=== PATIENT | male | born 1980 | race Caucasian/White ===

== ENCOUNTER 2018-04-07 15:15 | Emergency (ER) | payer SELFPAY ==
[~2018-04-07] VITALS: Ht 170.2 cm; Wt 82.0 kg
[2018-04-07 15:29] VITALS: BP 141/90
== END 2018-04-07 20:11 | disposition home or self-care (01) ==
LOC: ER 16:30
DX: L02.416 Cutaneous abscess of left lower limb (principal)
CPT/HCPCS: 99283; Z7610

== ENCOUNTER 2018-05-27 07:26 | Emergency (ER) | payer SELFPAY ==
[~2018-05-27] VITALS: Ht 167.6 cm; Wt 87.0 kg
[2018-05-27] MEDS ORDERED: KETOROLAC 30MG/ML VIAL IM ONE (10:30)
[2018-05-27 12:28] LABS: CLARITY URINE CLEAR (CLEAR); COLOR URINE YELLOW (YELLOW); KETONES URINE NEGATIVE (NEGATIVE); LEUKOCYTE ESTERASE URINE NEGATIVE (NEGATIVE); NITRITE URINE NEGATIVE (NEGATIVE); OCCULT BLOOD URINE NEGATIVE (NEGATIVE); PROTEIN URINE TRACE (NEGATIVE); UROBILINOGEN URINE 0.2 E.U./dL (0.2-1.0)
[2018-05-27 13:01] VITALS: BP 117/72
== END 2018-05-27 13:04 | disposition home or self-care (01) ==
LOC: ER 09:15
DX: M54.5 Low back pain (principal)
CPT/HCPCS: 81003; 96372; 99283; J1885

== ENCOUNTER 2018-08-04 07:49 | Emergency (ER) | payer SELFPAY ==
[~2018-08-04] VITALS: Ht 172.7 cm; Wt 88.0 kg
[2018-08-04 08:45] VITALS: BP 156/81
[2018-08-04] MEDS ORDERED: KETOROLAC 60MG/2ML VIAL IM ONE (08:45)
[2018-08-04] MEDS ORDERED: CYCLOBENZAPRINE 10MG TABLET PO ONE (08:45)
== END 2018-08-04 09:27 | disposition home or self-care (01) ==
LOC: ER 07:49
DX: M54.5 Low back pain (principal); Z87.891 Personal history of nicotine dependence
CPT/HCPCS: 96372; 99283; J1885

== ENCOUNTER 2018-08-16 22:13 | Emergency (ER) | payer SELFPAY ==
[~2018-08-16] VITALS: Ht 170.2 cm; Wt 89.0 kg
[2018-08-17] MEDS ORDERED: KETOROLAC 30MG/ML VIAL IV STA (03:05)
[2018-08-17] MEDS ORDERED: FAMOTIDINE 20MG/2ML VIAL IV STA (03:05)
[2018-08-17] MEDS ORDERED: SODIUM CHLORIDE 0.9% 1,000 ML IV ONE (03:05)
[2018-08-17] MEDS ORDERED: ONDANSETRON HCL 4MG/2ML INJ IV STA (03:05)
[2018-08-17 03:24] LABS: BASOPHILS % 0.3 % (0.0-2.0); EOSINOPHILS % 0.3 % (0.0-5.0); HEMATOCRIT. 44.8 % (42.0-52.0); HEMOGLOBIN. 15.8 g/dL (14.0-18.0); LYMPHOCYTES % 10.8 % (20.0-50.0); MEAN CORPUSCULAR HEMOGLOBIN 30.8 pg (28.0-32.0); MEAN CORPUSCULAR VOLUME 87.5 fL (80.0-94.0); MEAN PLATELET VOLUME 7.6 fl (7.4-10.4); MONOCYTES % 9.9 % (2.0-8.0); NEUTROPHILS % 78.7 % (40.0-76.0); PLATELET 289 x1000/uL (130-400); RED BLOOD CELL COUNT 5.12 mill/uL (4.7-6.1); RED CELL DISTRIBUTION WIDTH 13.5 % (11.6-14.6)
[2018-08-17 03:26] LABS: CLARITY URINE CLEAR (CLEAR); COLOR URINE YELLOW (YELLOW); KETONES URINE TRACE (NEGATIVE); LEUKOCYTE ESTERASE URINE NEGATIVE (NEGATIVE); NITRITE URINE NEGATIVE (NEGATIVE); OCCULT BLOOD URINE NEGATIVE (NEGATIVE); PH URINE 7.5 (4.5-8.0); PROTEIN URINE TRACE (NEGATIVE); SPECIFIC GRAVITY URINE 1.034 (1.005-1.030)
[2018-08-17 03:36] LABS: CHLORIDE 108 mEq/L (98-107); ETHANOL BLOOD < 10 mg/dL
[2018-08-17 05:50] VITALS: BP 116/68
== END 2018-08-17 05:54 | disposition home or self-care (01) ==
LOC: ER 22:13
DX: K29.00 Acute gastritis without bleeding (principal); R10.9 Unspecified abdominal pain; F17.200 Nicotine dependence, unspecified, uncomplicated
CPT/HCPCS: 36415; 80053; 81003; 83690; 85025; 96361; 96374; 96375; 99284; G0482; J1885; J2405; J3490; J7030; J7042